=== PATIENT | female | born 1980 | race Caucasian/White ===

== ENCOUNTER 2019-07-30 11:35 | Emergency (ER) | payer MEDICAID ==
[~2019-07-30] VITALS: Ht 154.9 cm; Wt 67.1 kg
[2019-07-30 11:40] VITALS: Ht 154.9 cm; Wt 67.1 kg
[2019-07-30 12:53] VITALS: BP 124/75
== END 2019-07-30 12:53 | disposition home or self-care (01) ==
LOC: ED 11:35
DX: S82.442A Displaced spiral fracture of shaft of left fibula, initial encounter for closed fracture (principal); W01.0XXA Fall on same level from slipping, tripping and stumbling without subsequent striking against object, initial encounter; Y93.02 Activity, running; Y92.89 Other specified places as the place of occurrence of the external cause; Y99.8 Other external cause status

== ENCOUNTER 2020-02-18 20:29 | Emergency (ER) | payer MEDICAID, SELFPAY ==
[~2020-02-18] VITALS: Ht 157.5 cm; Wt 67.6 kg
[2020-02-18 20:58] VITALS: Ht 157.5 cm; Wt 67.6 kg
[2020-02-19 00:37] VITALS: BP 103/63
== END 2020-02-19 00:59 | disposition home or self-care (01) ==
LOC: ED 20:29
DX: J02.9 Acute pharyngitis, unspecified (principal); Z20.828 Contact with and (suspected) exposure to other viral communicable diseases
CPT/HCPCS: J1885; Q0092; U0003-CS